=== PATIENT | female | born 1990 | race Caucasian/White ===

== ENCOUNTER 2023-01-28 16:30 | Outpatient (RCR) | payer BC, SELFPAY ==
--- NOTE | 2022-12-27 16:10 | OPREHPOC ---
Outpatient Therapy Plan of Care This is a Multidisciplinary Plan of Care that may contain components documented by all disciplines (PT, OT, and ST.) PT Problem 1 PT Problem #1 Knowledge Deficit PT Goal 1 Goal 1. Patient will perform independent HEP Target Visit 5 PT Problem 2 PT Problem #2 Impaired Strength PT Goal 1 Goal 1. Improve pelvic floor strength to 4/5 to decrease incontinence Target Visit 5 PT Problem 3 PT Problem #3 Impaired Functional ADLs PT Goal 1 Goal 1. Patient able to do all normal activities with no more than 1 instance of incontinence every month Target Visit 5
--- NOTE | 2022-12-27 16:10 | PTOPEVAL1 ---
Assessment and note entered by Yenni Escamilla DPT Evaluation Information Assessment Status Evaluation Subjective Information Pt reports stress incontinence that started in 2020 after having her first child and worsened in April 2022 after having her second. Incontinence about 3 times a week, moderate volume. Will occur with running, laughing, sneezing, coughing. Sometimes has to change clothes. Urinates 8 times a day, drinks a lot of water as she is still . If she is up with the baby may void 2 times at night. denies pain with urination. Can hold urine 10 minutes at a time. BM daily, no pain. Denies history of pelvic pain. No other [employer] history. Two vaginal deliveries with significant tearing with both, told she had a cervical prolapse with the second. Patient goal: live normally without incontinence, more control over my bladder. No return visit to MD scheduled. Reported Pain Level Pain Score 0: Self Report Assessment PT Clinical Summary The patient is presenting to skilled therapy with worsening incontinence after deliveries baby in 2020 and 2022. She presents with decreased pelvic floor strength, decreased core strength, and a diastasis which are contributing to her frequent stress incontinence and occasional need to change clothes. She will highly benefit from therapy to address these impairments in order to reduce incontinence and improve participation in ADL's and work activities. Plan of Care Interventions Manual Therapy,Neuro Re-education,Patient/ Caregiver Education,Therapeutic Activities, Therapeutic Exercise PT Services Indicated Yes Treatment Frequency and 1 time a week for 4 visits Duration These treatments will address the objective and functional deficits as defined above. The patient will be advanced safely and appropriately in order for the patient to progress towards his/her prior level of function. Additional exercises will be introduced and as well as a comprehensive home exercise program upon discharge, if needed, ?to ensure carryover of functional gains achieved in the clinic. This treatment plan has been reviewed and agreement upon by the patient.
--- NOTE | 2023-01-22 08:51 | PCPTNOTE ---
Patient called to cancel appointment for 01/22/23.
--- NOTE | 2023-01-28 16:58 | OPREHPOC ---
Outpatient Therapy Plan of Care This is a Multidisciplinary Plan of Care that may contain components documented by all disciplines (PT, OT, and ST.) PT Problem 1 PT Problem #1 Knowledge Deficit PT Goal 1 Goal 1. Patient will perform independent HEP Target Visit 5 Progress Met PT Problem 2 PT Problem #2 Impaired Strength PT Goal 1 Goal 1. Improve pelvic floor strength to 4/5 to decrease incontinence Target Visit 5 Progress Partially Met PT Problem 3 PT Problem #3 Impaired Functional ADLs PT Goal 1 Goal 1. Patient able to do all normal activities with no more than 1 instance of incontinence every month Target Visit 5 Progress Partially Met
--- NOTE | 2023-01-28 16:59 | PTOPDC ---
Assessment and note entered by Yenni Escamilla DPT Evaluation Information Assessment Status Discharge Subjective Information Pt reports that therapy has been going well, 1 instance of incontinence in the last 2 weeks. Was a small amount of liquid. Voiding 8 times a day and can hold urine 20 minutes. Reported Pain Level Pain Score 0: Self Report Assessment PT Clinical Summary The patient has made excellent progress in therapy and reports only 1 instance of incontinence in the last 2 weeks. She demonstrates improved hip and pelvic floor strength as well as improved CAREN closure. Due to her progress, plan to discharge at this time. She has been educated in a thorough HEP and to contact MD and/or PT as needed. Plan of Care PT Services Indicated No
== END 2023-01-29 11:31 | disposition home or self-care (01) ==
LOC: ANHGOSHPT 16:30
PROVIDERS: PCP Family Medicine; Visit Provider Family Medicine
DX: N39.3 Stress incontinence (female) (male) (principal)
CPT/HCPCS: 97112; 97161; 97530

== ENCOUNTER 2023-08-21 15:59 | Outpatient (CLI) | payer BC, SELFPAY ==
[2023-08-21 16:32] LABS: Creatinine Urine 22.73 mg/dL (40-278)
[2023-08-21 16:35] LABS: Albumin Level 4.2 g/dL (3.4-5.0); Anion Gap 9 mmol/L (4-12); Blood Urea Nitrogen 14 mg/dL (7-18); Calcium 9.3 mg/dL (8.5-10.1); Carbon Dioxide 29 mmol/L (21-32); Chloride 102 mmol/L (98-108); Estimated Glomerular Filt Rate 58; Glucose 87 mg/dL (70-99); Osmolality Calculated 289 mOsm/kg (285-295); Phosphorus 3.7 mg/dL (2.6-4.7); Potassium 4.1 mmol/L (3.5-5.1); Sodium 140 mmol/L (136-145)
[2023-08-21 16:37] LABS: Total Protein Urine Random < 7.0 mg/dL (0.0-11.9); Ur Ttl Prot Creatinine Ratio 0.31 mg/mg (0-0.20)
[2023-08-22 12:04] LABS: Complement C3 107 mg/dL (83-193)
[2023-08-22 12:28] LABS: Creatinine, Random Urine 27 mg/dL (20-275); Total Protein/Creatinine Ratio NOTE mg/g creat (24-184)
[2023-08-22 12:48] LABS: Protein, Total 7.2 g/dL (6.1-8.1)
[2023-08-23 14:13] LABS: Anti Glomerular Basement Memb <1.0 AI
[2023-08-23 16:08] LABS: Albumin 4.2 g/dL (3.8-4.8); Alpha 1 Globulin 0.3 g/dL (0.2-0.3); Alpha 2 Globulin 0.7 g/dL (0.5-0.9); Beta 1 Globulin 0.5 g/dL (0.4-0.6); Gamma Globulin 1.2 g/dL (0.8-1.7)
[2023-08-24 12:49] LABS: ANCA Screen NEGATIVE (NEGATIVE)
== END 2023-08-21 16:00 | disposition home or self-care (01) ==
PROVIDERS: PCP Family Medicine; Visit Provider Internal Medicine Nephrology
DX: N26.1 Atrophy of kidney (terminal) (principal)
CPT/HCPCS: 36415; 80069; 82570; 83520; 84155; 84156; 84165; 84166; 86036; 86038; 86160; 86225

== ENCOUNTER 2023-08-22 15:56 | Outpatient (CLI) | payer BC, SELFPAY ==
[2023-08-22 16:40] LABS: Alanine Aminotransferase 19 U/L (14-59); Albumin Level 4.1 g/dL (3.4-5.0); Alkaline Phosphatase 51 U/L (46-116); Anion Gap 10 mmol/L (4-12); Aspartate Amino Transferase 14 U/L (15-37); Bilirubin,Total 0.6 mg/dL (0.00-1.00); Blood Urea Nitrogen 12 mg/dL (7-18); Calcium 9.3 mg/dL (8.5-10.1); Carbon Dioxide 28 mmol/L (21-32); Chloride 98 mmol/L (98-108); Estimated Glomerular Filt Rate > 60; Glucose 92 mg/dL (70-99); Osmolality Calculated 281 mOsm/kg (285-295); Potassium 3.9 mmol/L (3.5-5.1); Sodium 136 mmol/L (136-145)
== END 2023-08-22 15:57 | disposition home or self-care (01) ==
LOC: CHSLAB 15:58
PROVIDERS: PCP Family Medicine; Visit Provider Family Medicine
DX: I10 Essential (primary) hypertension (principal)
CPT/HCPCS: 36415; 80053

== ENCOUNTER 2023-08-23 14:33 | Outpatient (CLI) | payer BC, SELFPAY ==
--- NOTE | ~2023-08-23 | CT_ITS ---
EXAMINATION: CTA abdomen DATE: 08/23/2023 15:11 INDICATION: Renal artery stenosis. TECHNIQUE: Computed tomographic angiography (CTA) of the abdomen was performed with 100 mL Omnipaque- 350 intravenous contrast. Automated exposure control and iterative reconstruction technique were empl oyed. The dose-length product was 125.57 mGy-cm. Maximum intensity projection 3D-reconstructions of t he aorta and other arteries were constructed by the technologist on a separate workstation. COMPARISON: None. FINDINGS: The visualized portions of the lung bases are clear without pneumonia or pleural effusion. The heart is normal. No pericardial effusion. The liver, gallbladder, spleen, pancreas, adrenal gland s, and left kidney are normal. There is moderate atrophy of right kidney. There are no dilated loops of bowel. There are no pathologically enlarged lymph nodes. There is no free intraperitoneal fluid. T here is no significant stenosis of celiac axis, superior mesenteric artery, the renal arteries, or in ferior mesenteric artery. There is mild lumbar spondylosis. IMPRESSION: 1. Moderate atrophy of right kidney. No significant renal artery stenosis. Reviewed, dictated and finalized at location A.
== END 2023-08-23 14:34 | disposition home or self-care (01) ==
PROVIDERS: PCP Family Medicine; Visit Provider Internal Medicine Nephrology
DX: N26.1 Atrophy of kidney (terminal) (principal)
CPT/HCPCS: 74175; Q9967